=== PATIENT | male | born 1965 | race Caucasian/White ===

== ENCOUNTER 2020-01-12 12:45 | Outpatient (REF) | payer BC, SELFPAY | END 2020-01-12 12:46 | disposition home or self-care (01) | LOC: HO.WFDLDS 12:45 | PROVIDERS: Visit Provider Internal Medicine | DX: Z20.828 Contact with and (suspected) exposure to other viral communicable diseases (principal) | CPT/HCPCS: C9803; U0003 ==

== ENCOUNTER 2020-02-04 18:35 | Outpatient (REF) | payer BC, SELFPAY ==
--- NOTE | 2020-02-04 | MR_ITS ---
EXAMINATION: MR KNEE WITHOUT CONTRAST, LEFT CLINICAL INFORMATION: Fall. Left knee pain. Twisting injury. COMPARISON: None TECHNIQUE: MRI of the knee without contrast was performed using routine sequences on a high-field scanner. FINDINGS: MENISCI: Medial Meniscus: Complex tearing of the posterior horn with a complete versus near-complete oblique radial component. Attenuation of the posterior root. Medial extrusion of the meniscal body with intrasubstance degenerative signal. Lateral Meniscus: Intact LIGAMENTS: Cruciate: Intact Collateral: Intact EXTENSOR MECHANISM: Superior and inferior patellar enthesophytes. Intact quadriceps and patellar tendons. ARTICULAR CARTILAGE/BONE: Patellofemoral Compartment: Patellar articular cartilage thinning with areas of full-thickness fissuring at the medial and lateral patellar facet. Central and medial trochlear articular cartilage signal heterogeneity and surface irregularity. Marginal osteophytes. Medial Compartment: Diffuse weightbearing articular cartilage signal heterogeneity with areas of full-thickness loss at the posterior weightbearing medial femoral condyle measuring 2.3 cm in AP dimension. Prominent marginal osteophytes, most significant at the posterior/central aspect of the medial tibial plateau where there is degenerative cystic change. Lateral Compartment: Posterior weightbearing lateral femoral condyle articular cartilage signal heterogeneity. Focal delamination of the tibial plateau articular cartilage measuring 0.8 cm in AP dimension. Marginal osteophytes. JOINT FLUID AND BURSAE: Small joint effusion with mild synovitis. Small Sarkar's cyst. MR/MR knee LT wo con IMPRESSION: 1. Complex tearing of the medial meniscus posterior horn with a near-complete oblique inner margin radial component. Attenuation of the posterior root as well as medial extrusion of the meniscal body. 2. [id number] medial as well as [id number] patellofemoral and lateral compartment osteoarthritis. 3. Small joint effusion with mild synovitis. Small Sarkar's cyst.
== END 2020-02-04 18:36 | disposition home or self-care (01) ==
LOC: HO.MRI 18:35
PROVIDERS: PCP Internal Medicine; Visit Provider Internal Medicine
DX: S89.92XA Unspecified injury of left lower leg, initial encounter (principal)
CPT/HCPCS: 73721

== ENCOUNTER 2020-02-06 14:23 | Outpatient (REF) | payer BC, SELFPAY ==
--- NOTE | 2020-02-06 14:28 | XR_ITS ---
EXAMINATION: XR KNEE, LEFT CLINICAL INFORMATION: Fall, trauma, pain COMPARISON: MRI left knee 02/04/2020 TECHNIQUE: Three views of the left knee. FINDINGS: There are osteoarthritic changes involving all 3 knee joint compartments, greatest narrowing medial compartment. There are marginal osteophytes from the femoral condyles and tibial plateau and patella. No lateral patellar tilting or lateralization. There is spurring at the quadriceps insertion patella and at the origin of the patellar tendon. There is trace suprapatellar effusion. Hoffa's fat pad appears normal. No erosive changes or visible chondrocalcinosis. XR/XR knee LT 3V IMPRESSION: Tricompartment osteoarthritis. Trace suprapatellar effusion.
== END 2020-02-06 14:24 | disposition home or self-care (01) ==
LOC: HO.XRAY 14:23
PROVIDERS: PCP Internal Medicine; Visit Provider Internal Medicine
DX: S89.92XA Unspecified injury of left lower leg, initial encounter (principal); Z91.81 History of falling
CPT/HCPCS: 73562

== ENCOUNTER 2021-06-15 10:01 | Outpatient (REF) | payer BC, SELFPAY ==
[2021-06-15 10:12] LABS: MANUAL DIFF FLAG NO
[2021-06-15 10:43] LABS: Basophils Percent Auto 0.7 % (0-2); Eosinophils Absolute Auto 0.1 X10*3/uL (0.0-0.4); Eosinophils Percent Auto 1.4 % (0-4); Hemoglobin 15.6 g/dl (14.0-18.0); Imm Gran Abs Auto 0.01 X10*3/uL (0.00-0.03); Imm Gran Pct Auto 0.2 % (0.0-0.4); Lymphocytes Absolute Auto 1.7 X10*3/uL (1.2-4.9); Lymphocytes Percent Auto 41.2 % (20-40); Mean Corpuscular HGB Conc 33.2 g/dl (31.0-36.0); Mean Corpuscular Hemoglobin 28.9 pg (27.0-33.0); Mean Corpuscular Volume 87.2 fL (80.0-98.0); Mean Platelet Volume 11.3 fL (9.4-12.4); Monocytes Absolute Auto 0.5 X10*3/uL (0.1-1.2); Monocytes Percent Auto 10.7 % (2-11); Neutrophils Absolute Auto 1.9 x10*3/uL (2.0-8.3); Neutrophils Percent Auto 45.8 % (45-73); Platelet Count 177 X10*3/uL (160-400); Red Blood Count 5.39 X10*6/uL (4.60-5.80); White Blood Count 4.2 X10*3/uL (4.8-10.8)
[2021-06-15 11:24] LABS: Alanine Aminotransferase 51 U/L (0-40); Albumin Level 4.5 g/dL (3.5-5.0); Alkaline Phosphatase 65 U/L (39-117); Anion Gap 16 (12-20); Aspartate Amino Transferase 43 U/L (5-37); Bilirubin Total 0.6 mg/dL (0.0-1.0); Blood Urea Nitrogen 13 mg/dL (9-16); Calcium 9.8 mg/dL (8.4-10.2); Carbon Dioxide 25 mmol/L (22-29); Chloride 102 mmol/L (96-108); Cholesterol 214 mg/dL; Estimated Glomerular Filt Rate > 60; Glucose Fasting 102 mg/dL (60-99); HDL Cholesterol 34 mg/dL; LDL Cholesterol Calculated 130 mg/dl; Sodium 138 mmol/L (135-145); Total Protein 7.6 g/dL (6.5-8.0); Triglycerides 253 mg/dL
[2021-06-15 11:32] LABS: Prostate Specific Antigen 0.65 ng/mL (<0.05-4.0)
== END 2021-06-15 10:02 | disposition home or self-care (01) ==
LOC: HO.LAB 10:01
PROVIDERS: PCP Internal Medicine; Visit Provider Internal Medicine
DX: Z00.00 Encounter for general adult medical examination without abnormal findings (principal); Z13.220 Encounter for screening for lipoid disorders; Z12.5 Encounter for screening for malignant neoplasm of prostate
CPT/HCPCS: 36415; 80053; 80061; 84153; 85025

== ENCOUNTER 2021-06-17 12:16 | Outpatient (REF) | payer BC, SELFPAY ==
--- NOTE | ~2021-06-17 | US_ITS ---
EXAMINATION: US RETROPERITONEAL LIMITED (AORTA) CLINICAL INFORMATION: Family history of aortic dissection. Screening for abdominal aortic aneurysm. COMPARISON: CT abdomen and pelvis with contrast dated 02/21/2013. TECHNIQUE: Evans-scale, color Doppler and spectral Doppler evaluation of the abdominal aorta. FINDINGS: The aorta is normal. The measurements of the aorta in maximum AP and transverse dimensions respectively are as follows: Proximal: 3.0 x 2.8 cm. Mid: 2.0 x 2.2 cm. Distal: 1.9 x 1.9 cm. PSV: 96 cm/s. The measurements of the common iliac arteries in maximum AP and TRV dimensions are as follows: Right Common Iliac Artery: 1.6 x 1.5 cm. Left Common Iliac Artery: 1.5 x 1.6 cm. US/US abdominal aortic aneurysm IMPRESSION: No abdominal aortic or iliac artery aneurysm.
== END 2021-06-17 12:17 | disposition home or self-care (01) ==
LOC: HO.US 12:16
PROVIDERS: Visit Provider Internal Medicine
DX: Z13.6 Encounter for screening for cardiovascular disorders (principal); Z82.49 Family history of ischemic heart disease and other diseases of the circulatory system
CPT/HCPCS: 76706

== ENCOUNTER → 2021-07-20 08:07 | Outpatient (REF) | payer BC, SELFPAY ==
--- NOTE | 2021-07-20 08:13 | CA_ITS ---
Transthoracic Echocardiogram Patient (Last, First, Middle): Subhash Ruiz, Gender: Male Date of : 1965 Age: 56 Procedure Date: 07/20/2021 Procedure Type: Transthoracic Echocardiogram Location: OP Height: 182.88 cm Weight: 117.94 kg BSA: 2.38 m2 Heart Rate: bpm BP: 126 / 78 mmHg Concrete Gun Operator: SB Referring MD: Grover Jernigan MD Symptoms: Z82.49 FAM HX ISCHEMIC HEART DIS AMD FAM HX DISSECTION Study Quality: Fair ECG Rhythm: Bradycardia Conclusions: - The left ventricular systolic function is low normal. The visually estimated ejection fraction is between 50-55%. - Possible basal inferior hypokinesis in some views. - Mildly increased right ventricular cavity size. - No obvious valvular pathology seen on this study. - The asc aorta is normal in size. Findings Left Ventricle Normal left ventricular cavity size. The left ventricular systolic function is low normal. The visually estimated ejection fraction is between 50-55%. E/E prime ratio is between 8 and 15 consistent with indeterminate filling pressures. Evidence suggests grade I (mild) diastolic dysfunction. There is mild septal and mild basal asymmetric hypertrophy. Possible basal inferior hypokinesis in some views. Could also be technical. Right Ventricle Mildly increased right ventricular cavity size. There is normal right ventricular systolic function. Atria Both atria are normal in size. Aortic Valve There is a normal trileaflet aortic valve. There is no aortic valve stenosis. There is no aortic valve regurgitation. Mitral Valve The mitral valve appears normal. There is no mitral valve regurgitation. There is no mitral valve stenosis. Pulmonic Valve The pulmonic valve is likely normal. Tricuspid Valve The tricuspid valve was not well visualized. Tricuspid regurgitation envelope is inadequate for calculation of right ventricular systolic pressure. Great Vessels The asc aorta is normal in size. Venous The inferior vena cava is normal in size and collapses greater than 50% with inspiration. Pericardium/Pleural There is no evidence of pericardial effusion. Prior Study Comparison Changes noted compared to prior study dated: 08/20/2009. LVEF slightly lower. See comment on wall motion. Recommendations, Care & Conclusions No obvious valvular pathology seen on this study. Measurements 2D Linear Measurements IVSd: 1.03 0.6-0.9/0.6-1.0 cm LVIDd: 4.51 3.9-5.3/4.2-5.9 cm LVIDd Index: 1.89 2.4-3.2/2.2-3.1 cm/m2 LVIDs: 3.29 2.0-3.6 cm LVPWd: 0.70 0.7-1.1 cm LA Diam: 3.70 2.7-3.8/3.0-4.0 cm LAIDs Index: 1.55 1.5-2.3 cm/m2 LV Mass: 157.65 67-162/88-224 g LV Mass Index: 66.24 43-95/49-115 g/m2 LVOT Diam: 2.50 3.0+(-)1.3 cm 2D Systolic Function EF 4C: 50.70 >55% EF 2C: 55.80 >55% EF BiP: 55.10 >55% Mitral Valve MV Pk E: 0.70 MV PK A: 0.55 MV Decel Time: 190.00 E/A: 1.30 E'Lateral: 5.00 E'Medial: 4.35 E/E' Med: 16.20 E/E' Lat: 14.10 PHT: 56.00 MVA PHT: 3.93 Decel Davidson: 3.70 Aortic Valve AoV Pk Tarun: 0.88 AoV Pk Grad: 3.00 LVOT LVOT Pk Tarun: 0.76 LVOT Mn Tarun: 0.52 LVOT VTI: 0.15 LVOT Pk Grad: 2.00 LVOT Mn Grad: 1.00 LVOT Diam: 2.50 LVOT Area: 4.91 Diastolic Function MV Pk E: 0.70 MV Pk A: 0.55 E/A: 1.30 E'Medial: 4.35 E/E' Med: 16.20 E' Laterial: 5.00 E/E' Lat: 14.10 Right Ventricle TAPSE (mm): 18.30 TVS' Tarun: 9.57 Tricuspid Valve RA Press: 3.00 Great Vessels Aorta Sinus of Valsalva: 3.51 2.0-3.5 cm Ao Asc: 3.40 2.1-3.4 cm Pulmonary Veins Pulm Vein S/D 1.30 Pulmonary Valve PV Pk Tarun: 0.84 Peak PV Grad: 3.00 Updated in Other Vendor System with Status of Final Leo Lynn MD electronically signed on 07/22/2021 11:20:37 AM with status of Final
== END ==
LOC: HO.CARD 08:07
PROVIDERS: Visit Provider Internal Medicine
DX: Z82.49 Family history of ischemic heart disease and other diseases of the circulatory system (principal)
CPT/HCPCS: 93306

== ENCOUNTER → 2022-02-13 12:44 | Outpatient (BNVA) | payer BC, SELFPAY | PROVIDERS: PCP Internal Medicine; Visit Provider Internal Medicine Cardiovascular Disease | DX: R93.1 Abnormal findings on diagnostic imaging of heart and coronary circulation (principal); E78.5 Hyperlipidemia, unspecified | CPT/HCPCS: 93005 ==

== ENCOUNTER → 2022-02-24 08:01 | Outpatient (REF) | payer BC, SELFPAY ==
--- NOTE | ~2022-02-24 | NM_ITS ---
EXERCISE MYOCARDIAL PERFUSION STUDY INDICATION: Abnormal echocardiogram, assess for coronary disease and ischemia TECHNIQUE: The patient was brought in for an exercise perfusion study on 02/24/2022. Patient performed exercise as per Ruben protocol and was injected 40 mCi of sestamibi once target heart rate was achieved. Images were obtained using the SPECT gamma camera interlaced with the gating device. Images were obtained in supine position. Resting perfusion study was performed on 03/01/2022. Patient was administered 40 mCi of sestamibi intravenously at rest. Images were then obtained in supine position. Images were processed with the software and compared side to side in short axis, horizontal long axis and vertical long axis views. Total DLP 130mGy-cm. FINDINGS: Raw images were reviewed. The stress perfusion study showed mildly diminished tracer uptake in the basal inferior wall. With CT attenuation correction, there is significant improvement suggestive of diaphragmatic attenuation artifact. The gated study shows normal LV systolic function with calculated LVEF of 55%. LV cavity is normal in size. The gated study shows normal wall thickening and contraction of segments. Resting study shows no significant perfusion defect. Gating at rest reveals normal wall motion with ejection fraction at 55%. The findings are consistent with no definite reversible or fixed perfusion defects. NM/NM cardiolite stress test IMPRESSION: 1. Myocardial perfusion imaging study shows likely normal myocardial perfusion. 2. Gated LVEF is 55% during stress and rest. 3. Transient ischemic dilatation not present. EKG component of the test reported separately.
== END ==
LOC: HO.CARD 08:01
PROVIDERS: PCP Internal Medicine; Visit Provider Internal Medicine Cardiovascular Disease
DX: R07.9 Chest pain, unspecified (principal); R93.1 Abnormal findings on diagnostic imaging of heart and coronary circulation
CPT/HCPCS: 78452; 93017; A9500

== ENCOUNTER → 2022-04-03 13:40 | Outpatient (BNVA) | payer BC, SELFPAY | PROVIDERS: PCP Internal Medicine; Referring Provider Internal Medicine; Visit Provider Internal Medicine Cardiovascular Disease | DX: Z13.89 Encounter for screening for other disorder (principal) ==

== ENCOUNTER 2022-07-18 11:09 | Outpatient (REF) | payer BC, SELFPAY ==
--- NOTE | ~2022-07-18 | XR_ITS ---
EXAMINATION: XR KNEE, RIGHT CLINICAL INFORMATION: Pain COMPARISON: None available. TECHNIQUE: Four views of the right knee. FINDINGS: No acute fracture or subluxation. Compartmental joint spaces are maintained with prominent tricompartmental marginal osteophytes. Small joint effusion. Somewhat fragmented appearance at the tibial tuberosity likely from prior chronic repetitive trauma. Enthesophyte formation of the patella. XR/XR knee RT 4V IMPRESSION: Moderate tricompartmental degenerative changes. Small joint effusion.
[2022-07-18 11:22] LABS: MANUAL DIFF FLAG NO
[2022-07-18 12:21] LABS: Basophils Percent Auto 0.5 % (0-2); Eosinophils Percent Auto 0.3 % (0-4); Hematocrit 47.5 % (42.0-52.0); Hemoglobin 15.7 g/dl (14.0-18.0); Imm Gran Abs Auto 0.01 X10*3/uL (0.00-0.03); Imm Gran Pct Auto 0.2 % (0.0-0.4); Lymphocytes Absolute Auto 1.9 X10*3/uL (1.2-4.9); Lymphocytes Percent Auto 30.2 % (20-40); Mean Corpuscular HGB Conc 33.1 g/dl (31.0-36.0); Mean Corpuscular Hemoglobin 28.6 pg (27.0-33.0); Mean Corpuscular Volume 86.7 fL (80.0-98.0); Mean Platelet Volume 11.6 fL (9.4-12.4); Monocytes Absolute Auto 0.5 X10*3/uL (0.1-1.2); Monocytes Percent Auto 7.4 % (2-11); Neutrophils Absolute Auto 3.9 x10*3/uL (2.0-8.3); Neutrophils Percent Auto 61.4 % (45-73); Platelet Count 203 X10*3/uL (160-400); Red Blood Count 5.48 X10*6/uL (4.60-5.80); Red Cell Distribution Width 13.1 % (11.0-16.0); White Blood Count 6.4 X10*3/uL (4.8-10.8)
[2022-07-18 13:37] LABS: Alanine Aminotransferase 28 U/L (0-40); Albumin Level 4.7 g/dL (3.5-5.0); Alkaline Phosphatase 74 U/L (39-117); Anion Gap 17 (12-20); Aspartate Amino Transferase 23 U/L (5-37); Bilirubin Total 0.9 mg/dL (0.0-1.0); Blood Urea Nitrogen 15 mg/dL (9-16); Calcium 9.8 mg/dL (8.4-10.2); Carbon Dioxide 23 mmol/L (22-29); Chloride 104 mmol/L (96-108); Cholesterol 155 mg/dL; Estimated Glomerular Filt Rate > 60; Glucose Fasting 97 mg/dL (60-99); HDL Cholesterol 39 mg/dL; LDL Cholesterol Calculated 69 mg/dl; Potassium 4.8 mmol/L (3.3-5.1); Sodium 139 mmol/L (135-145); Total Protein 7.5 g/dL (6.5-8.0); Triglycerides 239 mg/dL
[2022-07-18 14:01] LABS: Prostate Specific Antigen 0.63 ng/mL (<0.05-4.0)
== END 2022-07-18 11:10 | disposition home or self-care (01) ==
LOC: HO.LAB 11:09
PROVIDERS: PCP Internal Medicine; Visit Provider Internal Medicine
DX: Z00.00 Encounter for general adult medical examination without abnormal findings (principal); Z12.5 Encounter for screening for malignant neoplasm of prostate; M25.561 Pain in right knee; E78.5 Hyperlipidemia, unspecified
CPT/HCPCS: 36415; 73564; 80053; 80061; 84153; 85025

== ENCOUNTER 2022-11-30 08:29 | Outpatient (REF) | payer BC, SELFPAY ==
--- NOTE | ~2022-11-30 | XR_ITS ---
EXAMINATION: XR KNEE AP STANDING CLINICAL INFORMATION: Pain. COMPARISON: Prior radiographs dated 07/18/2022 and 02/06/2020. TECHNIQUE: AP bilateral standing view of the knees was obtained. FINDINGS: There is mild asymmetric narrowing of the medial joint space compartment of the right knee, with peripheral osteophyte formation. The lateral joint space compartment of the right knee is well-maintained. There is mild asymmetric narrowing of the medial joint space compartment of the left knee, with peripheral osteophyte formation. The lateral joint space compartment of the left knee is well-maintained, with minimal peripheral osteophyte formation. No fracture or dislocation is seen. There is a mild bilateral varus configuration. Atherosclerotic calcifications are seen within the right calf. XR/XR knee standing BI IMPRESSION: 1. There is mild osteoarthritic change of the medial joint space compartment of the right knee. 2. There is mild osteoarthritic change of the medial joint space compartment of the left knee, and minimal osteoarthritic change is seen of the lateral joint space compartment. 3. There is a mild bilateral varus configuration.
== END 2022-11-30 08:30 | disposition home or self-care (01) ==
LOC: HO.HOSX 08:29
PROVIDERS: Visit Provider Orthopaedic Surgery
DX: M17.0 Bilateral primary osteoarthritis of knee (principal)
CPT/HCPCS: 73565

== ENCOUNTER 2022-11-30 08:53 | Outpatient (AMB) | payer BC, SELFPAY ==
--- NOTE | 2022-11-30 08:27 | MHC.OFFVIS ---
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 Patient reports that he has had ongoing bilateral knee pain for many years now. Left is worse than the right. He has history of arthroscopic surgeries, but is unsure of what knee. He has increased pain with prolonged standing, stairs and walking. 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 He says his pain is worse when flying as well. He says his left knee pain worsened several months ago when he tried to push off while his knee was hyperextended. He says his knee was bruised for some time after this. His pain improved with rest and is now tolerable. He played sports for many years in the past, which he thinks led to some of his knee pain, and wants to continue playing sports to remain active. He has a hx of knee but did not specify which side this was performed on. 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 Review of Systems Const All systems reviewed & are unremarkable except as noted in HPI and below Physical Exam Vital Signs: BMI result Body Mass Index 34.4 Const General: no acute distress, alert and awake Orientation/consciousness: patient oriented x3 HEENT Head: Yes normocephalic and Yes atraumatic Eyes EOM: EOMs intact bilaterally Resp Effort & Inspection: normal respiratory effort and able to speak in complete sentences Cardio Jugular venous distension: no JVD Skin General skin exam: turgor normal Rashes: no rashes Neuro General: patient oriented x3 Extrem Other: Left Knee: Varus alignement No gait antalgia 5-125 deg no ttp Psych Appearance: grossly normal Affect: normal affect Attitude: cooperative Results Reviewed Results Reviewed: I personally reviewed relevant radiographs. Moderate-severe tricompartmental OA bilaterally Assessment & Plan Assessment & Plan (1) Osteoarthritis of left knee: Code(s): M17.12 - Unilateral primary osteoarthritis, left knee Plan: This is a 57 year old man with mod-severe left knee OA. He has pain with ambulation, prolonged standing, or using stairs. His pain has improved recently with rest, and he says this is tolerable. No acute intervention warranted at this time. If his symptoms persist or worsen he can follow up for a steroid injection. (2) Osteoarthritis of right knee: Code(s): M17.11 - Unilateral primary osteoarthritis, right knee Plan: Mod-severe right knee OA. Pain with activity but this is tolerable. No intervention warranted. Plan Scribed for Amaury Bah MD by Jose Alejandro Dowd, chief medical physicist, on 11/30/22 at 9:15 AM, EST. Orders: Orders XR knee standing BI Today M25.569 - Pain in unspecified knee Coding Level of Care Code New Pt Level 3 (68117) Diagnoses Osteoarthritis of left knee M17.12 Osteoarthritis of right knee M17.11
[2022-11-30 09:02] VITALS: BMI 34.4
== END 2022-11-30 10:48 | disposition home or self-care (01) ==
PROVIDERS: PCP Internal Medicine; Visit Provider Orthopaedic Surgery
DX: M17.0 Bilateral primary osteoarthritis of knee (principal)
CPT/HCPCS: 99203

== ENCOUNTER 2024-11-18 08:21 | Outpatient (AMB) | payer OTHER, SELFPAY ==
--- NOTE | 2024-11-18 08:23 | A.OFFPC_ITS ---
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 Required: No Accompanied by: Self / Same As Patient Allergies No Known Allergies Allergy (Verified 11/18/24 08:24) Medication List - Last Reconciled 11/18/24 by Daren Hope MD No Known Home Meds Tobacco use date assessed: 11/18/24 Dental Screening Dental Screen Date: 11/18/24 Did you have a dental visit in the last 12 months?: No Did you have a dental problem in the last 6 months where you did not have access to dental care?: No Was dental information given to patient?: Patient has dentist HPI HPI Comments History of Present Illness Details The patient is a 59-year-old male presenting for a wellness visit and to discuss medication history, particularly regarding rosuvastatin and its side effects. During the visit, the patient reported experiencing muscle pain attributed to rosuvastatin; the symptoms were self-diagnosed, and the medication was discontinued without follow-up. The patient has a history of visits to [facility] for managing and screening skin lesions, including dysplastic nevi and basal cell carcinoma. He undergoes dermatological evaluations biannually, with a history of undergoing approximately a dozen surgeries for these skin conditions. The patient described his alcohol consumption as drinking two to three drinks of alcohol every other evening, which he acknowledges as being on the higher side of moderation. He denied any current symptoms of anxiety or depression and has no known allergies. 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 He also reported increased frequency of urination, which he attributes to aging, and the absence of respiratory symptoms or chest discomfort. The patient has no recent history of smoking, although he occasionally smoked cigars in the past, and confirmed receiving vaccinations and medical clearance for his current employment. Medical History: - Basal Cell Carcinoma with surgical exc ision - Dysplastic Nevi, ongoing dermatologic surveillance - Muscle Pain induced by Rosuvastatin - Hypertension, previously treated, curr ently not on medication - Family history of heart disease and di abetes Surgical History: - Multiple excisions for Basal Cell Carc inoma and Dysplastic Nevi - Knee surgery performed two years ago Medications: - Discontinued Rosuvastatin due to muscl e pain - No current medications Family History: - Family history of heart disease (fathe r and sister) - Family history of diabetes (father) Social: - Retired from [employer] employment as a transporter - Former smoker of cigars, no current to bacco use - Alcohol consumption approximately thre e to four times a week, two to three drinks per occasion - Recent divorce - Stable housing situation [facility] Medical History (Updated 11/18/24 @ 08:59 by Daren Hope MD) Family history of heart disease BPH (benign prostatic hyperplasia) Alcohol use disorder Melanoma Family history of coronary arteriosclerosis Family history of aortic dissection Surgical History (Updated 11/17/24 @ 15:44 by Fabi Kessler) History of colonoscopy (~11/13/14) Hx of knee surgery Family History Father CAD (coronary artery disease) Mother CAD (coronary artery disease) Sister CAD (coronary artery disease) Social History (Updated 11/30/22 @ 09:06 by Ekaterina Abbasi CMA) Housing: Apartment Patient Tobacco Use Status: Never used Tobacco e-Cigarette/Vaping Use: Never Used Current occupational status: employed 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 1. Little interest or pleasure in doing things: not at all 2. Feeling down, depressed, or hopeless: not at all 3. Trouble falling or staying asleep, or sleeping too much: not at all 4. Feeling tired or having little energy: not at all 5. Poor appetite or overeating: not at all 6. Feeling bad about yourself - or that you are a failure or have let yourself or your family down: not at all 7. Trouble concentrating on things, such as reading the newspaper or watching television: not at all 8. Moving or speaking so slowly that other people could have noticed. Or the opposite - being so fidgety or restless that you have been moving around a lot more than usual: not at all 9. Thoughts that you would be better off or of hurting yourself in some way: not at all Total score: 0 Depression Screening Interpretation: Negative Depression Screening Done: Yes 13584 - PHQ-9 Billing: Yes Source: Developed by Drs. Deshaun Garcia, Efrem Llanes and colleagues, with an educational brennen from [employer]. Thrive Questionnaire Date Thrive assessed: 11/18/24 I am a: Patient What is your living situation today?: I have a steady place to live Within the past 12 months, did the food you bought not last and you didn't have the money to get more?: Never true Within the past 12 months, did you worry whether your food would run out before you got money to buy more?: Never true Do you have trouble paying for medicines?: No Do you have trouble getting transportation to medical appointments?: No Do you have trouble paying your heating and electricity bill?: No Do you have trouble taking care of your child, family member or friend?: No Do you have trouble with day-to-day activities such as bathing, preparing meals, shopping, managing finances, etc.?: No Are you currently unemployed and looking for a job?: No Are you interested in more education?: No THRIVE Score: 0 AUDIT C Alcohol Use Questionnaire (AUDIT-C) 1. How often do you have a drink containing alcohol?: 2-3 times a week 2. How many drinks containing alcohol do you have on a typical day when you are drinking?: 3 or 4 Total Score: 4 CHRYSTAL-7 AMB Questionnaire CHRYSTAL-7 Date CHRYSTAL - 7 assessed: 11/18/24 Feeling nervous, anxious, or on edge: 0 = Not at all Not being able to stop or control worryin = Not at all Worrying too much about different things: 0 = Not at all Trouble relaxin = Not at all Being so restless that it is hard to sit still: 0 = Not at all Becoming easily annoyed or irritable: 0 = Not at all Feeling afraid as if something awful might happen: 0 = Not at all Total CHRYSTAL-7 score (0-4 normal; 5-9 mild; 10-14 moderate; 15-21 severe): 0 Source: Developed by Cynthia Jaffe Kurt Kroenke and colleagues, with an educational brennen from [employer]. CHRYSTAL-7 Assessment Billing CHRYSTAL-7 Assessment Tool: CHRYSTAL-7 Assessment 71984 Review of Systems Const Details: - Skin: Reports multiple excisions for skin lesions, no current dermatological symptoms. - Cardiovascular: Denies chest pain, shortness of breath. - Gastrointestinal: Denies nausea, vomiting; regular bowel movements, but needs follow-up for colonoscopy. - Genitourinary: Reports increased frequency of urination, denies nocturia. - Neurological: Denies any anxiety or depression. - Musculoskeletal: Reports muscle pain previously with rosuvastatin. All systems reviewed & are unremarkable except as reviewed in HPI and above Physical exam (Primary Care) Vital Signs: Last Vital Signs Temp 97.7 F 11/18/24 08:38 Pulse 53 11/18/24 08:38 Resp 18 11/18/24 08:38 BP 138/62 11/18/24 08:38 Pulse Ox 97 11/18/24 08:38 Oxygen Delivery Method Room Air 11/18/24 08:38 BMI result Body Mass Index 32.0 Tobacco/Smoking Status: Tobacco use Status Tobacco use date assessed 11/18/24 11/18/24 08:24 Patient Tobacco Use Status Never used Tobacco 11/18/24 08:24 e-Cigarette/Vaping Use Never Used 11/18/24 08:40 PHQ-9: PHQ-9 Score PHQ-9: Total score 0 11/18/24 08:50 Depression Screening Interpretation: Negative Thrive Assessment: Date of Thrive Assessment Date Thrive assessed 11/18/24 11/18/24 08:50 Const Other: General: Alert and oriented, Well nourished, No acute distress. Eye: Pupils are equal, round and reactive to light, Intact accommodation, Extraocular movements are intact, Normal conjunctiva, Vision unchanged. HENT: Normocephalic, Atraumatic, Tympanic membranes are clear, Normal hearing, Oral mucosa is moist, No pharyngeal erythema, Ear canals patent. Respiratory: Lungs CTA bilaterally, No wheeze, Respirations are non-labored. Cardiovascular: Regular rate, Regular rhythm, S1 auscultated, S2 auscultated, No murmur, Good pulses equal in all extremities, Normal peripheral perfusion, No edema. Gastrointestinal: Soft, Non-tender, Non-distended, Normal bowel sounds, No organomegaly. Musculoskeletal: Normal range of motion, Normal strength, No tenderness, No swelling, No deformity, Normal gait. Integumentary: Warm, Dry, [place], Intact. Lesions noted on right hand. Neurologic: Alert, Oriented, Normal sensory, Normal motor function, No focal defects, Cranial Nerves II-XII are grossly intact, Normal deep tendon reflexes. Psychiatric: Cooperative, Appropriate mood & affect, Normal judgment. Mood is pretty good, not anxious or depressed. Coding Level of Care Code New Pt Level 4 (47190) New Pt Prev Care 40-64y(40902) Diagnoses Hyperlipidemia, unspecified hyperlipidemia type E78.5 Hyperlipidemia type: unspecified Malignant melanoma, unspecified site C43.9 Melanoma location: unspecified site Alcohol use disorder F10.90 Benign prostatic hyperplasia without lower urinary tract symptoms N40.0 Lower urinary tract symptom presence: symptoms absent Family history of heart disease Z82.49 Additional Codes CHRYSTAL-7 Assessment Billing - CHRYSTAL-7 Assessment Tool: CHRYSTAL-7 Assessment 34826 ([id number]) PHQ-9 - 98421 - PHQ-9 Billing: Yes ([id number]) Assessment & Plan Assessment & Plan (1) Hyperlipidemia: Comment: - Previously had elevated lipid panel, however given muscle pains, self discontinued rosuvastatin - Will obtain lipid panel and re-evaluate. Will consider low dose statin Code(s): E78.5 - Hyperlipidemia, unspecified Category: Medical Qualifiers: Hyperlipidemia type: unspecified Qualified Code(s): E78.5 - Hyperlipidemia, unspecified (2) Melanoma: Comment: - Monitor for recurrence with semi-annual dermatological assessments. - Continue established plan with dermatology. Code(s): C43.9 - Malignant melanoma of skin, unspecified Category: Medical Qualifiers: Melanoma location: unspecified site Qualified Code(s): C43.9 - Malignant melanoma of skin, unspecified (3) Alcohol use disorder: Comment: - Plan to reduce alcohol consumption to minimal levels to prevent liver damage and other systemic issues. Code(s): F10.90 - Alcohol use, unspecified, uncomplicated Category: Medical (4) BPH (benign prostatic hyperplasia): Comment: - Consider Tamsulosin if urinary symptoms worsen (currently symptoms not affecting day to day living) - Monitor urinary symptoms, address lifestyle modifications if necessary. Code(s): N40.0 - Benign prostatic hyperplasia without lower urinary tract symptoms Category: Medical Qualifiers: Lower urinary tract symptom presence: symptoms absent Qualified Code(s): N40.0 - Benign prostatic hyperplasia without lower urinary tract symptoms (5) Family history of heart disease: Comment: - Review and assess lipid panel and cardiovascular screenings for risk assessment. - Completed stress test, and was negative Code(s): Z82.49 - Family history of ischemic heart disease and other diseases of the circulatory system Category: Medical Plan: Health Maintenance: - Due for colonoscopy screening (Ordered today) - Blood work to include lipid panel, liver function tests, thyroid function tests, vitamin D levels, HIV, syphilis, and hepatitis screening - Reinforce lifestyle modifications including alcohol moderation Plan During the visit, we discussed the potential side effects of rosuvastatin and the patient's corresponding symptoms leading to its discontinuation. I advised against restarting the medication without thorough evaluation of his cholesterol levels and possible alternatives. We also explored his regular dermatologic foll ow-ups for Basal Cell Carcinoma and dysplastic nevi, emphasizing the importance of biannual monitoring. We discussed the need to moderate alcohol intake, reflecting on the patient's past cigars usage, while encouraging a healthier lifestyle to prevent any long-term liver complications. The patient's family history of heart disease and diabetes was addressed, with a plan to obtain relevant blood work for comprehensive screening. The need for a colonoscopy was highlighted, given his previous one was in 2014, and suggested potential intervention with tamsulosin should urinary symptoms become problematic. Follow- up is scheduled in six months, encouraging the patient to maintain open communication regarding any new symptoms or concerns. Orders: Orders Comprehensive Met. Panel Today E78.5 - Hyperlipidemia, unspecified Hemoglobin A1c Today E78.5 - Hyperlipidemia, unspecified Hepatitis A,B,C Profile Today E78.5 - Hyperlipidemia, unspecified Lipid Panel Today E78.5 - Hyperlipidemia, unspecified Complete Blood Count Auto Diff Today E78.5 - Hyperlipidemia, unspecified HIV Ab/Ag Today E78.5 - Hyperlipidemia, unspecified Syphilis Screen Today E78.5 - Hyperlipidemia, unspecified TSH reflex Free T4 Today E78.5 - Hyperlipidemia, unspecified Vitamin D 25-OH Total Today E78.5 - Hyperlipidemia, unspecified Referrals Open Access Screening Colonoscopy Referral Z12.11 - Encounter for screening for malignant neoplasm of colon Patient Instructions: - Undergo all scheduled blood tests; await results for further instructions. - Maintain regular dermatological appointments. - Schedule a colonoscopy as soon as possible. - Limit alcohol consumption to moderate levels as discussed. - Return to clinic in six months or sooner if new symptoms arise.
[2024-11-18 08:38] VITALS: BP 138/62; PULSE 53; RESP 18; TEMP 36.5; O2SAT 97; BMI 32.0
--- OUTSIDE RECORDS SUMMARY | 2024-11-18 09:45 | XMS_ITS | Clinical Summary ---
Author Organization [facility] Address [address] [facility] [address] [place] [address] Phone Care Team Providers Care School Manager Name Role Phone Grover Jernigan MD Primary Care Provider Allergies Active Allergy Reactions Criticality Noted Date Comments [employer] Pollen 06/10/2020 Medications No known medications Active Problems No known active problems Immunizations Immunization Administration Dates Next Due Hepatitis B Adult 10/02/2024,06/23/2024 MMR 06/23/2024 Tdap 10/02/2024 Social History Tobacco Use Types Packs/Day Years Used Date Smoking Tobacco: Never Smokeless Tobacco: Never Alcohol Use Standard Drinks/Week Comments Yes 0 (1 standard drink = 0.6 oz pur e alcohol) 1-2 a day Education Answer Date Recorded Are you interested in more education? Not on lizzy e 06/30/2022 Are you concerned about learning? Not on file 06/30/2022 No 06/30/2022 No 06/30/2022 Digital Access Answer Date Recorded No 07/29/2022 No 07/29/2022 No 07/29/2022 Reliable internet access at home? Not on file 07/29/2022 Device with a working camera? Not on file Intimate Partner Violence Answer Date R ecorded Are you denied basic needs s uch as food, clothing, or medical care? No 03/05/2022 In the past 12 months have y ou been in a relationship with a person who hurts, threatens, or tries to control you? No 03/05/2022 Are you denied basic needs s uch as food, clothing, or medical care? No 03/05/2022 In the past 12 months have y ou been in a relationship with a person who hurts, threatens, or tries to control you? No 03/05/2022 Sex and Gender Information Value Date Recorded Sex Assigned at Male 03/05/2018 9:30 AM EST Legal Sex Male 9:04 AM EST Gender Identity Male 03/05/2018 9:30 AM EST Sexual Orientation Straight 03/05/2018 9: 30 AM EST Last Filed Vital Signs Vital Sign Reading Time Taken Comments Blood Pressure 131/92 03/05/2022 7:11 PM EST Pulse 81 03/05/2022 7:11 PM EST Temperature 36.4 C (97.5 F) 03/05/2022 7:11 PM EST Respiratory Rate 14 03/05/2022 7:11 PM EST Oxygen Saturation 94% 03/05/2022 7:11 PM EST Inhaled Oxygen Concentration - - Weight 115.7 kg (255 lb) 03/05/2022 2:55 PM EST Height 182.9 cm (6') 03/05/2022 2:55 PM EST Body Mass Index 34.58 03/05/2022 2:55 PM EST Plan of Treatment Health Maintenance Due Date Last Done Comments LIPID PANEL 1964 DEPRESSION SCREENING 1976 HEPATITIS C SCREENING 1982 HIV ONE-TIME SCREENING (18-6 5 YEARS) 1982 COLOGUARD 2009 COLONOSCOPY 2009 COLORECTAL CANCER SCREENING 2009 FIT TEST 2009 FOBT 2009 SIGMOIDOSCOPY 2009 VIRTUAL COLONOSCOPY 2009 PNEUMOCOCCAL VACCINES (50+ years) (1 of 1 - PCV) 2014 ZOSTER VACCINES (1 of 2) 2014 SCREENING FOR DIABETES 03/05/2021 03/05/2018 INFLUENZA VACCINE (#1) 2024 7, 12/21/2014 COVID-19 VACCINE (3 - 2024-2 6 season) 2024 05/20/2020, 04/22/2020 Adult Td,Tdap Booster 10/02/2034 10/02/2024 RSV VACCINE (1 - 1-dose 75+ series) 05/07/2039 SMOKING STATUS SCREENING (On ce After 26 Yrs) Completed 06/10/2020 HEPATITIS A VACCINES Aged Out No long er eligible based on patient's age to complete this topic HIB VACCINES Aged Out No longer eligi ble based on patient's age to complete this topic MENINGOCOCCAL VACCINES (ACWY) Aged Out No longer eligible based on patient's age to complete this topic MENINGOCOCCAL VACCINES (B) Aged Out N o longer eligible based on patient's age to complete this topic Medical Devices Not on file Insurance [place] [address] Care Teams School Manager Relationship Specialty Start Date End Date Grover Jernigan MD [address] [place] [address] [place] [address] PCP - General Internal Medicine 03/05/18 Additional Source Comments The information contained in this document represents components of the legal health record. It is not the complete legal health record.[facility]
== END 2024-11-18 09:00 | disposition home or self-care (01) ==
PROVIDERS: PCP Student in an Organized Health Care Education/Training Program; Visit Provider Student in an Organized Health Care Education/Training Program
DX: E78.5 Hyperlipidemia, unspecified (principal); C43.9 Malignant melanoma of skin, unspecified; F10.90 Alcohol use, unspecified, uncomplicated; N40.0 Benign prostatic hyperplasia without lower urinary tract symptoms; Z82.49 Family history of ischemic heart disease and other diseases of the circulatory system; Z00.00 Encounter for general adult medical examination without abnormal findings

== ENCOUNTER → 2024-11-18 08:21 | Outpatient (BNVA) | payer OTHER, SELFPAY | PROVIDERS: PCP Internal Medicine; Visit Provider Student in an Organized Health Care Education/Training Program | DX: E78.5 Hyperlipidemia, unspecified (principal); C44.91 Basal cell carcinoma of skin, unspecified; N40.0 Benign prostatic hyperplasia without lower urinary tract symptoms; F10.90 Alcohol use, unspecified, uncomplicated; Z82.49 Family history of ischemic heart disease and other diseases of the circulatory system; Z13.31 Encounter for screening for depression; Z13.39 Encounter for screening examination for other mental health and behavioral disorders | CPT/HCPCS: 96127 ==

== ENCOUNTER 2024-12-04 08:17 | Outpatient (REF) | payer OTHER, SELFPAY ==
[2024-12-04 10:36] LABS: MANUAL DIFF FLAG NO
[2024-12-04 10:39] LABS: Hematocrit 45.0 % (42.0-52.0); Hemoglobin 15.6 g/dl (14.0-18.0); Imm Gran Abs Auto 0.01 X10*3/uL (0.00-0.03); Imm Gran Pct Auto 0.2 % (0.0-0.4); Lymphocytes Absolute Auto 1.4 X10*3/uL (1.2-4.9); Mean Corpuscular HGB Conc 34.7 g/dl (31.0-36.0); Mean Corpuscular Hemoglobin 29.7 pg (27.0-33.0); Mean Corpuscular Volume 85.6 fL (80.0-98.0); NRBC Abs Auto 0.000 X10*3/uL (0.0-0.012); NRBC Pct Auto 0.0 /100WBC (0.0-0.2); Platelet Count 194 X10*3/uL (160-400); Red Blood Count 5.26 X10*6/uL (4.60-5.80); White Blood Count 6.5 X10*3/uL (4.8-10.8)
[2024-12-04 11:03] LABS: Alanine Aminotransferase 23 U/L (0-40); Albumin Level 4.6 g/dL (3.5-5.0); Alkaline Phosphatase 67 U/L (39-117); Anion Gap 11 (12-20); Aspartate Amino Transferase 29 U/L (5-37); Blood Urea Nitrogen 18 mg/dL (9-16); Calcium 9.3 mg/dL (8.4-10.2); Carbon Dioxide 27 mmol/L (22-29); Chloride 106 mmol/L (96-108); Cholesterol 199 mg/dL (<200); Estimated Glomerular Filt Rate > 60; HDL Cholesterol 41 mg/dL (>40); Potassium 4.5 mmol/L (3.3-5.1); Sodium 139 mmol/L (135-145); Total Protein 7.2 g/dL (6.5-8.0); Triglycerides 151 mg/dL (<150)
[2024-12-04 11:12] LABS: Syphilis Screen Nonreactive (Nonreactive)
[2024-12-04 11:13] LABS: HBS Num1 1.49 mIU/mL (0-7.99); HBc Num1 0.08 S/CO (0.00-0.79); HBsAGNum1 0.39 S/CO (0.00-0.99); HIV Num 1 0.07 S/CO (0.00-0.99); Hepatitis A Antibody IgM 0.18 Index (0-0.79); Hepatitis B Surface Antigen Negative (Negative); ~HepC Num1 0.06 S/CO (0.00-0.79); ~Hepatitis A Antibody IgM Nonreactive (Nonreactive); ~Hepatitis B Surface Antibody NONREACTIVE (Nonreactive); ~Hepatitis C Antibody Nonreactive (Nonreactive)
== END 2024-12-04 08:18 | disposition home or self-care (01) ==
LOC: HO.10HDL 08:17
PROVIDERS: Visit Provider Student in an Organized Health Care Education/Training Program
DX: Z13.1 Encounter for screening for diabetes mellitus (principal); E78.5 Hyperlipidemia, unspecified
CPT/HCPCS: 36415; 80053; 80061; 82306; 83036; 84443; 85025; 86704; 86706; 86709; 86780; 86803; 87340; 87389